=== PATIENT | female | born 1970 | race Caucasian/White ===

== ENCOUNTER 2016-09-25 18:43 | Emergency (ER) ==
[2016-09-25 18:48] VITALS: BP 105/66; TEMP 102.1; BMI 17.1
[2016-09-25] MEDS ORDERED: SODIUM CHLORIDE 1,000 ML IV STA (18:54)
[2016-09-25] MEDS ORDERED: MORPHINE 2 MG/ML SYRINGE IVP STA ×2 (18:54→20:25)
[2016-09-25] MEDS ORDERED: ZOFRAN 4 MG/2 ML IVP STA (18:54)
[2016-09-25 19:05] LABS: BILIRUBIN,URINE Negative (NEGATIVE); KETONES,URINE Negative (NEGATIVE); LEUKOCYTE ESTERASE ,URINE Negative (NEGATIVE); NITRITE,URINE Negative (NEGATIVE); PH,URINE 6.5 (5-9); PROTEIN,URINE Negative (NEGATIVE); URINE, BLOOD 1+ (NEGATIVE)
[2016-09-25 19:07] LABS: BASOPHILS # (AUTO) 0.1 K/uL (0-0.2); BASOPHILS % (AUTO) 0.4 % (0.0-3.0); EOSINOPHILS # (AUTO) 0.1 K/ul (0.0-0.7); EOSINOPHILS % (AUTO) 0.3 % (0.0-7.0); HEMATOCRIT 31.7 % (37.0-47.0); HEMOGLOBIN 10.1 g/dl (12.0-16.0); IMMATURE GRANULOCYTE % (AUTO) 0.9 % (0.0-5.0); LYMPHOCYTES # (AUTO) 2.8 K/uL (0.60-3.4); LYMPHOCYTES % (AUTO) 15.4 (10.0-50.0); MEAN CORPUSCULAR HEMOGLOBIN 24.5 pg (27.0-31.0); MEAN CORPUSCULAR HGB CONC 31.9 (31.8-35.4); MEAN CORPUSCULAR VOLUME 76.8 fl (81.0-99.0); MONOCYTES # (AUTO) 1.7 K/uL (0.4-2.0); MONOCYTES % (AUTO) 9.3 (0-10); NEUTROPHILS # (AUTO) 13.3 K/ul (2.0-6.9); NEUTROPHILS % (AUTO) 73.7; PLATELET COUNT 556 10^3/uL (140-440); RED BLOOD COUNT 4.13 10^6/ul (4.20-5.40); WHITE BLOOD COUNT 18.09 K/ul (4.6-10.2)
[2016-09-25 19:08] LABS: ADD URINE MICROSCOPIC YES; BACTERIA,URINE TRACE (NOT PRESENT)
[2016-09-25 19:16] LABS: SERUM PREGNANCY INTERNAL QC INTERNAL QC VALID
[2016-09-25 19:26] LABS: ALBUMIN/GLOBULIN RATIO 0.65; ANION GAP 12.1; BILIRUBIN,TOTAL 0.61 mg/dL (0.00-1.20); BUN/CREATININE RATIO 19.04; CALCIUM 9.1 mg/dL (8.2-10.2); CREATININE 0.84 mg/dL (0.60-1.30); POTASSIUM 4.1 mmol/L (3.5-5.10); TOTAL PROTEIN 7.6 g/dL (6.4-8.2)
[2016-09-25 19:36] LABS: ERYTHROCYTE SEDIMENTATION RATE 54 mm/hr (0-20); ESR INTERNAL QC INTERNAL QC VALID
--- NOTE | 2016-09-25 20:10 | CT ---
EXAM: CT abdomen with and without contrast. CT pelvis with and without contrast. HISTORY: Right lower quadrant pain. COMPARISON: 12/02/2014. TECHNIQUE: Multiple axial images of the abdomen and pelvis were obtained prior to and following int ravenous administration of 75 mL of Omnipaque 350, low osmolar. Images reformatted in the coronal p tonja. FINDINGS: The lung bases are clear. Degenerative changes are present in the spine. Gallbladder is absent. The liver, pancreas, spleen, adrenal glands, and kidneys are without acute a bnormality. There is extensive inflammation within the lower abdomen and pelvis which appears to be centered myron und the distal ileum which demonstrates moderate to severe wall thickening extending to the level of the ileocecal valve. Mesenteric edema is present. There is loculated fluid in the pelvis with ass ociated wall thickening, with several discrete collections which measures at least 7.4 x 4.7 cm on c oronal image 27 and more anterior pelvis, with additional collection in the region of the cul-de-sac measuring 6.6 x 2.6 cm on coronal image 45. No pneumatosis identified. No free air detected. The re is no evidence for bowel obstruction. The appendix is not seen. There are multiple mesenteric l ymph nodes, greatest in the right lower quadrant. Uterus not identified. The bladder is collapsed. IMPRESSION: Distal/terminal ileitis with extensive localized peritonitis/abscess formation, suggestive of Crohn disease.
[2016-09-25] MEDS ORDERED: ZOSYN 3.375 GM 3.375 GM in SODIUM CHLORIDE 100 ML IV STA (20:33)
--- NOTE | 2016-09-25 20:47 | ED.PDOC ---
General ED Provider: Dr. AURORA ISSA-ER Chief Complaint: Abdominal Pain Stated Complaint: christy been hurting since last night Time Seen by Physician: 18:45 Mode of Arrival: Walk-In Information Source: Patient, Family Exam Limitations: No limitations Primary Care Provider: CHRISTOPHER NOEL Nursing and Triage Documentation Reviewed and Agree: Yes GI Complaint Exam - Abdominal Pain Complaint/Exam Onset: Gradual Duration: 24hrs Symptoms Are: Still present Timing: Constant Initial Severity: Mild Current Severity: Moderate Location of Pain: Discrete, RLQ Radiates To: Reports: RLQ Character: Reports: Dull, Aching, Throbbing Aggravating: Reports: None Alleviating: Reports: None Associated Signs and Symptoms: Reports: Fever, Decreased appetite, Nausea. Denies: Diaphoresis, Cough, Chest pain, Dizziness, Back pain, Constipation, Blood in stool, Dysuria, Urinary frequency, Decreased urine output, Vaginal bleeding, Vaginal discharge, Vomiting, Diarrhea, Sore throat, Decreased activity Related History: Reports: Similar episode Cardiac Risk Factors: Reports: Smoking Ectopic Risk Factors: Reports: None Ovarian Torsion Risk Factors: Reports: None Surgical Obstruction Risk Factors: Reports: Colicky abdominal pain Related Surgical History: Reports: Tubal ligation Patient Rh Status: Unknown Abdominal Findings: Present: Rebound tenderness Differential Diagnoses: Appendicitis, Other Review of Systems - Review Of Systems Constitutional: Reports: Chills, Fever Eyes: Reports: No symptoms Ears, Nose, Mouth, Throat: Reports: No symptoms Respiratory: Reports: No symptoms Cardiac: Reports: No symptoms GI: Reports: Abdominal pain, Nausea, Poor appetite : Reports: No symptoms Musculoskeletal: Reports: No symptoms Skin: Reports: No symptoms Neurological: Reports: No symptoms Endocrine: Reports: No symptoms Hematologic/Lymphatic: Reports: No symptoms All Other Systems: Reviewed and Negative Past Medical History - Past Medical History Endocrine: Reports: Unknown Cardiovascular: Reports: Unknown Respiratory: Reports: Other Hematological: Reports: Unknown Gastrointestinal: Reports: Crohn's Genitourinary: Reports: Unknown Neuro/Psych: Reports: Unknown Musculoskeletal: Reports: Unknown Cancer: Reports: Unknown Last Menstrual Period: none - Surgical History General Surgical History: Reports: Unknown - Family History Family History: Reports: Unknown - Social History Smoking Status: Current every day smoker, Light tobacco smoker Hx Substance Use: No Alcohol Screening: None Lives: With family Physical Exam - Physical Exam Appearance: Well-appearing, No pain distress, Well-nourished Pain Distress: Moderate Eyes: YASSINE, EOMI, Conjunctiva clear ENT: Ears normal, Nose normal, Oropharynx normal Neck: Supple Respiratory: Airway patent, Breath sounds clear, Breath sounds equal, Respirations nonlabored Cardiovascular: RRR, Pulses normal, No rub, No murmur GI/: Soft, No Organomegaly, Tender, Bowel sounds hypoactive Musculoskeletal: Normal strength, ROM intact, No edema, No calf tenderness Skin: Warm Neurological: Sensation intact Psychiatric: Affect appropriate, Mood appropriate Interpretation - Radiology Interpretation Radiology Interpretation By: Radiologist Radiology Results: Positive Exam Interpreted: CT Scan ("7.4 x 4.7cm abscess") Re-Evaluation - Re-Evaluation Time of Re-Evaluation: 20:48 Status: Unchanged Vital Signs Stable: Yes Pain Level: 2 Appearance: NAD Lungs: Clear Skin: Warm and Dry Neuro: Alert and Oriented X3 CV: RRR Physician Notification - Case Discussed Physician Notified: 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 slu--8:30 Physician Notified: dr pool(surgeon) and dr sanon (e.d.) both graciously accepted this patien Time of Notification: 22:01 Critical Care Note - Critical Care Note Total Time (mins): 0 Course - Course Hematology/Chemistry: 09/25/16 19:00 09/25/16 19:00 Orders, Labs, Meds: Lab Review 09/25/16 09/25/16 18:57 19:00 WBC 18.09 H RBC 4.13 L Hgb 10.1 L Hct 31.7 L MCV 76.8 L MCH 24.5 L MCHC 31.9 RDW Coeff of Suhail 14.1 Plt Count 556 H Immature Gran % (Auto) 0.9 Neut % (Auto) 73.7 Lymph % (Auto) 15.4 [place] % (Auto) 9.3 Eos % (Auto) 0.3 Baso % (Auto) 0.4 Immature Gran # (Auto) 0.2 Neut # 13.3 H Lymph # 2.8 [place] # 1.7 Eos # 0.1 Baso # 0.1 ESR 54 H Sodium 135 L Potassium 4.1 Chloride 100 Carbon Dioxide 27 Anion Gap 12.1 BUN 16 Creatinine 0.84 Estimated GFR (MDRD) 73.00 BUN/Creatinine Ratio 19.04 Glucose 102 Calcium 9.1 Total Bilirubin 0.61 AST 18 ALT 10 L Alkaline Phosphatase 104 H Total Protein 7.6 Albumin 3.0 L Globulin 4.6 Albumin/Globulin Ratio 0.65 Amylase 41 Lipase 7 L Serum , Qual Negative Urine Color Yellow Urine Clarity Clear Urine pH 6.5 Ur Specific [place] 1.010 Urine Protein Negative Urine Glucose (UA) Negative Urine Ketones Negative Urine Blood 1+ Urine Nitrite Negative Urine Bilirubin Negative Urine Urobilinogen 0.2 Ur Leukocyte Esterase Negative Urine Microscopic RBC 5-10 Urine Microscopic WBC 0-2 Ur Squamous Epith Cells 0-2 Urine Bacteria Trace Orders Category Date Time Status NPO REMINDER: IMAGING ONCE CARE 09/25/16 18:55 Completed IV [ED IV/MEDIPORT/POWERPORT] .ONCE EMERGENCY 09/25/16 18:54 Active AMYLASE Stat LAB 09/25/16 19:00 Completed CBC W/ AUTO DIFF Stat LAB 09/25/16 19:00 Completed COMPREHENSIVE METABOLIC PANEL Stat LAB 09/25/16 19:00 Completed ESR Stat LAB 09/25/16 19:00 Completed LIPASE Stat LAB 09/25/16 19:00 Completed SERUM Stat LAB 09/25/16 19:00 Completed URINALYSIS C & S IF INDICATED Stat LAB 09/25/16 18:57 Completed 0.9 % Sodium Chloride [Saline Flush] MEDS 09/25/16 18:54 Ordered 1 syr IVF PRN PRN Hydromorphone HCl [Dilaudid 1 mg/ml Syringe] MEDS 09/25/16 21:56 Discontinued 1 mg IVP ONCE STA Morphine Sulfate [Morphine 2 mg/ml Syringe] MEDS 09/25/16 18:54 Discontinued 2 mg IVP ONCE STA Morphine Sulfate [Morphine 2 mg/ml Syringe] MEDS 09/25/16 20:25 Discontinued 2 mg IVP ONCE STA Ondansetron HCl/Pf [Zofran 4 mg/2 ml] MEDS 09/25/16 18:54 Discontinued 4 mg IVP ONCE STA Piperacillin Sodium/Tazobactam [Zosyn 3.375 gm] 3.375 MEDS 09/25/16 20:33 Discontinued gm 0.9 % Sodium Chloride [Sodium Chloride] 100 ml IV ONCE Sodium Chloride 0.9% [Sodium Chloride] 1,000 ml MEDS 09/25/16 18:54 Active IV 100 mls/hr CT ABDOMEN/PELVIS W/WO CONTRAS Stat RADS 09/25/16 18:55 Completed Medications Generic Name Dose Route Start Last Admin Trade Name Ethan PRN Reason Stop Dose Admin Sodium Chloride 1,000 mls @ 100 mls/hr 09/25/16 18:54 09/25/16 19:15 Sodium Chloride IV 09/26/16 04:53 100 mls/hr .Q10H STA Administration Sodium Chloride 1 syr 09/25/16 18:54 09/25/16 19:14 Saline Flush IVF 1 syr PRN PRN Administration To flush IV Discontinued Medications Generic Name Dose Route Start Last Admin Trade Name Ethan PRN Reason Stop Dose Admin Hydromorphone HCl 1 mg 09/25/16 21:56 Dilaudid 1 Mg/Ml Syringe IVP 09/25/16 21:57 ONCE STA Piperacillin Sod/Tazobactam 100 mls @ 100 mls/hr 09/25/16 20:33 09/25/16 20: 49 Sod 3.375 gm/ Sodium Chloride IV 09/25/16 21:32 100 mls/hr ONCE STA Administration Morphine Sulfate 2 mg 09/25/16 18:54 09/25/16 19:15 Morphine 2 Mg/Ml Syringe IVP 09/25/16 18:55 2 mg ONCE STA Administration Morphine Sulfate 2 mg 09/25/16 20:25 09/25/16 20:49 Morphine 2 Mg/Ml Syringe IVP 09/25/16 20:26 2 mg ONCE STA Administration Ondansetron HCl 4 mg 09/25/16 18:54 09/25/16 19:15 Zofran 4 Mg/2 Ml IVP 09/25/16 18:55 4 mg ONCE STA Administration Vital Signs: Temp Pulse Resp BP Pulse Ox 09/25/16 18:44 102.1 F H 118 H 18 105/66 96 Departure - Departure Time of Disposition: 22:01 Disposition: TSF SHORT-TRM HOSP Discharge Problem: Terminal ileitis with abscess Instructions: Abscess (ED) Condition: Good Pt referred to PMD for follow-up: Yes Allergies/Adverse Reactions: Allergies No Known Allergies Allergy (Verified 09/25/16 18:48) Home Medications: Ambulatory Orders 1 [No Reported Medications] 09/25/16 Transfer Form Completed: Yes Disposition Discussed With: Patient, Family
[2016-09-25] MEDS ORDERED: DILAUDID 1 MG/ML SYRINGE IVP STA (21:56)
== END 2016-09-25 22:20 | disposition short-term general hospital (02) ==
LOC: ED 18:43
DX: K50.014 Crohn's disease of small intestine with abscess (principal); F17.210 Nicotine dependence, cigarettes, uncomplicated
CPT/HCPCS: 36415; 80053; 81001; 82150; 83690; 84703; 85025; 85651; 96361; 96365; 96375; 96376; 99285

== ENCOUNTER 2017-03-06 16:19 | Outpatient (CLI) ==
[2017-03-06 16:33] LABS: BASOPHILS % (AUTO) 0.3 % (0.0-3.0); EOSINOPHILS # (AUTO) 0.1 K/ul (0.0-0.7); EOSINOPHILS % (AUTO) 0.9 % (0.0-7.0); HEMATOCRIT 32.1 % (37.0-47.0); HEMOGLOBIN 10.3 g/dl (12.0-16.0); IMMATURE GRANULOCYTE % (AUTO) 0.7 % (0.0-5.0); LYMPHOCYTES # (AUTO) 5.1 K/uL (0.60-3.4); MEAN CORPUSCULAR HEMOGLOBIN 26.6 pg (27.0-31.0); MEAN CORPUSCULAR HGB CONC 32.1 (31.8-35.4); MEAN CORPUSCULAR VOLUME 82.9 fl (81.0-99.0); MONOCYTES # (AUTO) 0.7 K/uL (0.4-2.0); MONOCYTES % (AUTO) 8.9 (0-10); NEUTROPHILS # (AUTO) 1.7 K/ul (2.0-6.9); NEUTROPHILS % (AUTO) 22.2; PLATELET COUNT 512 10^3/uL (140-440); RED BLOOD COUNT 3.87 10^6/ul (4.20-5.40); WHITE BLOOD COUNT 7.57 K/ul (4.6-10.2)
[2017-03-06 16:49] LABS: ALBUMIN 2.7 g/dL (3.4-5.0); BILIRUBIN,DIRECT 0.14 mg/dL (0.00-0.30); BILIRUBIN,TOTAL 0.21 mg/dL (0.00-1.20); TOTAL PROTEIN 5.9 g/dL (6.4-8.2)
== END 2017-03-06 16:20 | disposition home or self-care (01) ==
LOC: LAB 16:19
PROVIDERS: ATTEND Internal Medicine Gastroenterology
DX: K50.913 Crohn's disease, unspecified, with fistula (principal); Z79.899 Other long term (current) drug therapy
CPT/HCPCS: 36415; 80076; 85025

== ENCOUNTER 2017-03-12 16:50 | Inpatient (IN) ==
[2017-03-12 17:36] VITALS: BMI 14.9
[2017-03-12 18:09] LABS: BASOPHILS # (AUTO) 0.1 K/uL (0-0.2); BASOPHILS % (AUTO) 0.7 % (0.0-3.0); EOSINOPHILS % (AUTO) 0.3 % (0.0-7.0); HEMATOCRIT 33.9 % (37.0-47.0); IMMATURE GRANULOCYTE % (AUTO) 0.8 % (0.0-5.0); LYMPHOCYTES # (AUTO) 3.4 K/uL (0.60-3.4); LYMPHOCYTES % (AUTO) 38.7 (10.0-50.0); MEAN CORPUSCULAR HGB CONC 32.4 (31.8-35.4); MEAN CORPUSCULAR VOLUME 83.3 fl (81.0-99.0); MONOCYTES # (AUTO) 1.1 K/uL (0.4-2.0); MONOCYTES % (AUTO) 11.9 (0-10); NEUTROPHILS # (AUTO) 4.2 K/ul (2.0-6.9); NEUTROPHILS % (AUTO) 47.6; PLATELET COUNT 511 10^3/uL (140-440); RED BLOOD COUNT 4.07 10^6/ul (4.20-5.40); WHITE BLOOD COUNT 8.82 K/ul (4.6-10.2)
[2017-03-12 18:54] LABS: ALBUMIN 2.6 g/dL (3.4-5.0); ALBUMIN/GLOBULIN RATIO 0.7; ANION GAP 13.3; BILIRUBIN,TOTAL 0.22 mg/dL (0.00-1.20); BUN/CREATININE RATIO 22.5; CALCIUM 8.6 mg/dL (8.2-10.2); CREATININE 0.8 mg/dL (0.60-1.30); POTASSIUM 3.3 mmol/L (3.5-5.10); TOTAL PROTEIN 6.3 g/dL (6.4-8.2)
[2017-03-12] MEDS ORDERED: INFUVITE ADULT IV ONE (18:59)
--- NOTE | 2017-03-12 19:23 | DI ---
EXAM: PA and lateral views of the chest. HISTORY: Weight loss. FINDINGS: The bones are unremarkable. The cardiac silhouette and pulmonary vasculature are within n ormal limits. The costophrenic angles are clear. No infiltrate or consolidation. Impression: No acute cardiopulmonary disease.
--- NOTE | 2017-03-12 19:24 | DI ---
EXAM: Upright supine views of the abdomen. HISTORY: Weight loss. Abdominal pain. FINDINGS: There is a normal bowel gas pattern. No evidence of bowel obstruction or free intraperito bar air. There are surgical clips in the right upper quadrant consistent with cholecystectomy. Th ere are phleboliths in the pelvis. The bones are unremarkable. Impression: Normal bowel gas pattern. Cholecystectomy.
[2017-03-12 20:09] LABS: BILIRUBIN,URINE 1+ (NEGATIVE); KETONES,URINE Trace (NEGATIVE); LEUKOCYTE ESTERASE ,URINE Trace (NEGATIVE); NITRITE,URINE Negative (NEGATIVE); PH,URINE 5.5 (5-9); PROTEIN,URINE Trace (NEGATIVE); URINE, BLOOD 1+ (NEGATIVE)
[2017-03-12] MEDS: INFUVITE ADULT 10 ML in D5%-NS-KCL 20 MEQ/L IV SOL 1,000 ML IV SCH (20:13)
[2017-03-12 20:15] LABS: ADD URINE MICROSCOPIC YES
[2017-03-12 20:38] LABS: COCAIN SCREEN,URINE NEGATIVE (NEGATIVE)
[2017-03-12] MEDS: DILAUDID 1 MG/ML SYRINGE IVP PRN (22:23)
[2017-03-12] MEDS ORDERED: BENTYL PO PRN (22:44)
[2017-03-12] MEDS ORDERED: ADALIMUMAB 40 MG SQ SCH (22:45)
[2017-03-12] MEDS ORDERED: DRISDOL PO SCH (23:00)
[2017-03-13] MEDS: DILAUDID 1 MG/ML SYRINGE IVP PRN ×3 (04:27→22:53)
[2017-03-13] MEDS ORDERED: INFUVITE ADULT IV ONE ×3 (06:19→23:57)
[2017-03-13] MEDS: INFUVITE ADULT 10 ML in D5%-NS-KCL 20 MEQ/L IV SOL 1,000 ML IV SCH (06:24)
[2017-03-13] MEDS ORDERED: NON-FORMULARY MEDICATION (Ondansetron Hcl [Zofran] 8 MG) PO SCH (09:00)
[2017-03-13] MEDS ORDERED: NON-FORMULARY MEDICATION (Ferrous Sulfate [Ferrous Sulfate] 325 MG) PO SCH ×22 (09:00)
[2017-03-13] MEDS ORDERED: RHEUMATREX PO SCH (09:00)
[2017-03-13] MEDS ORDERED: NON-FORMULARY MEDICATION (Metronidazole [Flagyl] 500 MG) PO SCH (09:00)
[2017-03-13] MEDS ORDERED: DRISDOL PO SCH (09:00)
[2017-03-13] MEDS: FLAGYL PO SCH ×3 (09:40→20:13)
[2017-03-13] MEDS: FERROUS SULFATE PO SCH ×3 (09:41→20:13)
[2017-03-13] MEDS: FOLIC ACID PO SCH (09:41)
[2017-03-13] MEDS: ZOFRAN TAB PO SCH ×3 (09:41→20:13)
--- NOTE | 2017-03-13 09:55 | CT ---
EXAM: CT Abdomen with contrast. CT Pelvis with contrast. HISTORY: Crohn disease. Abdominal pain. COMPARISON: 09/25/2016. TECHNIQUE: Multiple axial images of the abdomen and pelvis were obtained following intravenous admi nistration of 75 mL of Omnipaque 350, low osmolar. Images were reformatted in the coronal plane. FINDINGS: The lung base are clear. Degenerative changes present in the spine, greatest at L5-S1. Gallbladder is absent. The liver, pancreas, spleen, adrenal glands, kidneys are unremarkable. There is severe wall thickening of several distal loops of ileum, including the terminal ileum. The re is also wall thickening of some adjacent sigmoid colon with some tethering of the mesentery betwe en these bowel loops, and the possibility of communication between the distal small bowel and adjace nt sigmoid colon. No pneumatosis seen. There is no evidence for contrast extravasation or free air . No circumscribed drainable fluid collection identified. There are multiple mesenteric lymph node s present. There is no evidence for bowel obstruction. Urinary bladder is unremarkable. Uterus is absent.. IMPRESSION: Severe distal/terminal ileitis with findings suggesting the possibility enterocolonic fistula. No b owel obstruction, free air or abscess identified.
[2017-03-13] MEDS: ENTOCORT EC PO SCH (16:45)
[2017-03-14] MEDS: DILAUDID 1 MG/ML SYRINGE IVP PRN ×3 (04:51→15:10)
[2017-03-14] MEDS: FLAGYL PO SCH ×2 (04:51→13:26)
[2017-03-14] MEDS: INFUVITE ADULT 10 ML in D5%-NS-KCL 20 MEQ/L IV SOL 1,000 ML IV SCH ×2 (06:12→09:56)
[2017-03-14] MEDS: FOLIC ACID PO SCH (08:37)
[2017-03-14] MEDS: FERROUS SULFATE PO SCH ×2 (08:38→15:16)
[2017-03-14] MEDS: ZOFRAN TAB PO SCH ×2 (08:38→15:16)
[2017-03-14] MEDS: ENTOCORT EC PO SCH (08:38)
[2017-03-14] MEDS ORDERED: ADALIMUMAB 40 MG SUBCUT SCH (09:00)
[2017-03-14 17:44] VITALS: BP 112/78; TEMP 98.2
[2017-03-14] MEDS ORDERED: TYLENOL #3 TAB PO STA (18:19)
[2017-03-14] MEDS ORDERED: TYLENOL #3 TAB ONE (18:20)
--- NOTE | 2017-03-15 11:15 | HP ---
CHIEF COMPLAINT: 1. Abdominal pain. 2. Weight loss. 3. Anorexia. HISTORY OF PRESENT ILLNESS: This 47-year-old female was seen at the office as a new patient. The patient had been known to have had Crohn's disease with complications. The patient claimed to not have eaten much in the last day or two. She has constant abdominal pain. In the course of the examination, she was noted to have marked tenderness in the right abdomen. There is some rounded areas in the anterior abdominal wall that she claimed to be abscesses. It had been there for some time. Because of the persistent abdominal pain with marked tenderness and history of Crohn's disease with complications admission was felt necessary, more so that she had not been eating and she is losing weight. PAST PERSONAL HISTORY: 1. Crohn's disease with fistula formation 2. Perforated appendix 3. Cholecystectomy 4. Total abdominal hysterectomy and BSO 5. Colonoscopy and endoscopy 2014, seems to have had some fecal drainage through her vagina but not documented upon examination under general anesthesia. The patient claimed to have had Pentaza as well as prednisone in the past. She was seen at [facility] in September 2016 and was subsequently referred to [place], transported to [facility]. FAMILY HISTORY: Her father and maternal aunt was diagnosed with Crohn's disease. No colorectal carcinoma in the family. Mother was listed as having diabetes mellitus and brother. High blood pressure in mother and brother also. Mother had uterine carcinoma and her father also had throat carcinoma. Mother had chemical imbalance as well as heart disease and brother had skin cancer. SOCIAL HISTORY: The patient is , smokes very small amount of cigarettes. She use to smoke one pack of cigarettes a day. Admits to using marijuana. She has two children, 24 and 18 years of age. MEDICATIONS: (HOME) 1. Humira 40 mg/0.8 cc subcutaneously every other week 2. Zofran 8 mg three times a day 3. Bentyl Hydrochloride 10 mg capsule q.6hr p.r.n. 4. Ferrous Sulfate 325 mg three times a day. 5. Vitamin D two 50,000 units monthly 6. Flagyl 500 mg tablet three times a day 7. Methotrexate 2.5 mg tablet weekly 8. Folic Acid 1 mg tablet daily 9. Budesonide 3 mg capsule Er daily ALLERGIES: NKDA REVIEW OF SYSTEMS: CONSTITUTIONAL: The patient had no fever or chills but fatigue, looks florence. NEWSPAPER MANAGER: The patient denies any headaches, ataxia or syncopal episode or seizure disorder or seizures. VISUAL: Denies any blurred vision, double vision or transient loss of vision. AUDITORY: Hearing is adequate, no tinnitus, no pain or drainage. RESPIRATORY: No significant cough. GASTROINTESTINAL: The patient has abdominal pain, nausea plus anorexia and some indigestion. GENITOURINARY: The patient denies any pain or frequency of urination or urgency. MUSCULOSKELETAL: The patient is weak, probably secondary to lack of nutrition. She had lost significant amount of weight. ENDOCRINE: Negative. PSYCHIATRIC: Anxiety, depression. HEMATOLOGY: No history of prolonged bleeding. PHYSICAL EXAMINATION: GENERAL: 47-year-old female admitted to the hospital because of abdominal pain and tenderness, loss of appetite, lack of oral intake.The patient had been known to have Crohn's disease with complications. She appears very thin and tired. She is also somewhat pale. VITAL SIGNS: Height 5'5", 89 lbs, 14.4 ozs. Temperature 97.8, pulse 102, BP 110 /62 left, right 120/78, respiratory rate 18, oxygen saturation 99 on room air. HEAD: Unremarkable. Face is symmetrical and equal, somewhat sunken, no facial weakness. No remarkable tenderness to palpation in the frontomaxillary sinus areas. EYES: Pupils equal/reactive to light about 3 mm in size. Conjunctivae not pale. Sclerae not icteric. MOUTH: Unremarkable. NECK: No masses. No bruit. No tenderness. No rigidity. CHEST: Essentially symmetrical and equal. BREASTS: No dominant tumor masses. Axilla negative for any adenopathies. LUNGS: Breath sounds are heard on both sides. No rales or wheezing. HEART: Audible and regular with good tones. No murmurs. ABDOMEN: Flat, softer in the upper abdomen, markedly tender in the lower abdomen but with active bowel sounds. No significant muscular guarding. There are some subcutaneous rounded masses. She did tell me that these were abscesses but it doesn't feel like an abscess and there is no skin reaction above the mass. Bowel sounds were active. EXTERNAL GENITALIA: Not examined today. LOWER EXTREMITIES: Symmetrical and equal with no significant edema. Muscle mass is declined significantly. Pedal pulses were absent. UPPER EXTREMITIES: Symmetrical and equal. ASSESSMENT: 1. CROHN'S DISEASE WITH COMPLICATIONS 2. PERSISTENT WEIGHT LOSS SECONDARY TO #1 3. ANOREXIA SECONDARY TO #1 4. HISTORY OF VAGINAL COLLOID DRAINAGE NOT CONFIRMED 5. HISTORY OF DEPRESSION 6. HISTORY OF DEPRESSION 7. HISTORY OF ANXIETY 8. HISTORY OF TOTAL ABDOMINAL HYSTERECTOMY AND BSO 9. HISTORY OF CHOLECYSTECTOMY 10. HISTORY OF LAPAROSCOPIC OPERATION WITH UTERINE ABLATION 11. HISTORY OF CHRONIC TOBACCO USE AND ABUSE, DECREASED 12. HISTORY OF MARIJUANA USE 13. HISTORY OF COLONOSCOPY AND ENDOSCOPY 01/05/15 14. 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
[2017-03-17 15:05] LABS: HIV ANTIBODIES QUALITATIVE NONREACTIVE (Nonreactive)
[2017-03-18 09:39] LABS: BENZODIAZEPINES Negative ng/mL (Cutoff=300); COCAINE (METAB) Negative ng/mL (Cutoff=300); PHENCYCLIDINE Negative ng/mL (Cutoff=25)
[2017-03-18 11:33] LABS: OPIATES Negative ng/mL (Cutoff=300)
--- NOTE | 2017-03-18 14:54 | PN ---
DATE OF VISIT: 03/14/17 47 year old female who was admitted because of lower abdominal pain and tenderness. She was initially at the office prior to admission. The CT scan of the abdomen and pelvis done yesterday with oral and IV contrast revealed some enterocolonic fistula. The patient also mentioned that she had some brownish discharge from the vagina, which maybe stool. 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 I did a speculum examination today and the vaginal opening admits a middle sized speculum without any difficulty. The patient has an area of redness and swelling of the mucosa at about 11 o'clock. Vaginal discharge does not indicate any fecal material, grossly. There is some redness in the vaginal mucosa, but not anywhere near the one at 11 o'clock position. Bimanual palpation revealed the area to be with an indentation surrounding edematous tissue. There is tenderness in both adnexa to palpation, including the bladder. This patient is known to have Crohn's disease with previous abscess formation treated with percutaneous drainage under guidance. She had seen Charley Palumbo, as well as Dr. Jovani Velazquez. I had also discussed with the patient with regards to the drug screen. The notes from [place] mentioned that she had been using marijuana. However, our drug screen did indicate a positive finding for amphetamine and methamphetamine. I asked her about the use of that and she told me that she did indeed. She had been from her boyfriend, who had been with her for the last nine years. She has to have some strength to continue to work. 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 I did advise that I would not prescribe her any narcotic pain medication if she continues to use the methamphetamine. She told me that she would not. I also told her that she has an appointment upcoming with Dr. Palumbo, two weeks from now and she doesn't remember that she does. I told her that Dr. Cooper would advance the appointment next week and she might get a phone call from her office as to the time and the day that she is supposed to go there. I also informed her that I had informed Dr. Palumbo that she had lost more weight and her appetite has decreased and difficulty eating. I did give her a Tylenol #3 before leaving the hospital and she did not have any reaction to the medication. She is prescribed Tylenol #3, #30 to be taken one every 6-[address] if drowsy. No refills. I will see her again at the office in a week from tomorrow and before if there is any problem. I also informed her that if Saturday is the day that she is supposed to go to [place] that she should cancel the appointment with me and reschedule it for the next week. The patient had shown good understanding. She is due to have a Humira today and she has the dose at home. I told her that she should do that. She should call the office tomorrow and let us know what medications that she doesn't have. I would refill it and she uses [facility]. MTDD
--- NOTE | 2017-03-18 15:11 | PN ---
DATE OF VISIT: 03/13/17 The patient, today, is alert and oriented times four, not dyspneic, nor tachypneic. She claims that she is feeling better and the pain is relieved by the medication. Her urine drug screen was positive for meth and methamphetamine , as well as marijuana. CT scan of the abdomen and pelvis with oral and IV contrast showed severe wall thickening of several distal loops of ileum, including the terminal ileum. There is also some wall thickening of the adjacent sigmoid colon with some tethering of the mesentery between these bowel loops. There is a possibility of communication between the distal small bowel and adjacent sigmoid colon. No pneumatosis seen. There is no evidence for contrast extravasation or free air. There is no circumscribed drainable fluid collection identified. There are multiple mesenteric lymph nodes present. There is no evidence of bowel obstruction. Urinary bladder is unremarkable. Uterus is absent. Final impression is severe distal/terminal ileitis with findings suggesting the possibility of enterocolonic fistula. No bowel obstruction, free air or abscess identified. The patient is taking Humira ever two weeks, as well as Methotrexate at a low dose. These were prescribed by Dr. Charley Palumbo at [facility] in [place]. CBC on admission showed normal WBC 8,820. Blood sugar 184. Procalcitonin less than 0.05. TSH 0.701 within normal. Her fluid intake is between 25 to 50%. VITAL SIGNS: Seem to be stable at 5:46 p.m. on 03/13/2017 with a temperature of 98.1, pulse 94, blood pressure 126/82, respiratory rate 16, oxygen saturation 99 at room air. I had asked the patient whether she had used marijuana or meth and she declined or said no. I informed her that those were positive on the drug screen and quantitative measurements were requested. I informed the patient that we will try to talk to the doctor in [place] and get more guidance on what they would like to do. She does have a follow up appointment according to her with one of the doctors. I told her that she most likely will be discharged tomorrow since we have finished what we planned to do. She also doesn't have any active problems since her temperature is normal and white count is normal and the Procalcitonin is normal. MTDD
--- NOTE | 2017-03-18 15:36 | DS ---
DATE OF ADMISSION: 03/12/17 DATE OF DISCHARGE: 03/14/17 PATIENT IDENTIFICATION: The patient is a 47 year old female who was seen for the first time at the office as a new patient was a transfer from another family physician. This patient had history of severe Crohn's disease and was transferred from this facility from the emergency room to [facility] last September 2016. The patient had multiple abscess and were aspirated under guidance. She was seen initially by a surgeon Dr. Sergey Johnson and was referred to internal medicine GI and was seen by Dr. Charley Palumbo. The patient during the course of examined with markedly tender in the lower abdomen and bowel sounds are active. She did complain of some brownish drainage from her vagina and partially maybe fecaloid. The patient however had an extensive examination for this problem under anesthesia and there was not obvious fistula. The general appearance of the patient markedly emaciated and pale. LUNGS: Breath sounds are heard in both side with no rales or wheezing. HEART: Audible and regular with good tones and no murmurs CHEST: Markedly prominent ribs from the weight loss ABDOMEN: Flat, markedly tender in the lower abdomen to palpation. The upper abdomen is less tender and bowel sounds were active. The area in the lower abdomen which is rounded and soft. Don't know the nature of this. EXTERNAL GENITALIA: Was examined and no remarkable external abnormalities.Speculum examination reveal a red area with prominent vaginal tissue in the right upper portion about 11 o'clock of the vaginal cavity. The rest of the vagina has some redness in the mucosa with cloudy drainage. Palpation of the area at 11 o'clock felt like there is a dimple and maybe side of fistula and maybe the opening is quite small and maybe connected to the colon rather then small intestine. There is no obvious fecal material in the vagina. This patient was continued on all her home medications. She was given Dilaudid 1mg intervenously Q 4 hour PRN. This did help the abdominal pain. The patient's oral intake however was minimal between 25-50%. Her fluid intake on the 1st was 300cc and 2,180 on the 2nd and just before discharge on 03/14/17 was 1,230. The oral supplement was 240cc. I had informed the patient that I had the opportunity to discuss the case with Dr. Charley Palumbo. Dr. Palumbo told me that she has an appointment about mid March. I did tell her about her general conditions and the fact that also lost weight. The inflammation seemed to be less than what it was back when she saw her at [facility]. She told me that she would advance her appointment for this coming week and she would notify the patient. The patient is due for her Humira yesterday and I told her to take the dose and she already had the medication as well as the Methotrexate. If there is any medication that she needed that she doesn't have then she should get in touch with the office tomorrow so we could fill the prescription. I also advised her to see me a week from Saturday03/15/17. She can cancel that if she is to see Dr. Palumbo in [place]. If Dr. Palumbo office would not call her then she should let us know so I could call her back. This patient was initially given Tylenol #3 for pain and was initiated to the hospital to see if she has any reaction to the medication and she did not have any. She was then prescribed Tylenol #3 #30 to be taken one 6-[address] when drowsy with no refills. The patient is to drink supplement such as Boost or Glucerna at least twice a day. FINAL DIAGNOSES: 1. Crohn's disease, severe 2. 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 Chronic tobacco use and abuse, persistent 5. Continue emaciation and probably failure to thrive if it continues PROGNOSIS: Guarded to Poor MTDD
== END 2017-03-14 19:00 | disposition home or self-care (01) | DRG 385 ==
LOC: MEDSURG B 16:50
PROVIDERS: ADMIT General Practice; ATTEND General Practice
DX: K50.90 Crohn's disease, unspecified, without complications (principal); E41 Nutritional marasmus; K63.2 Fistula of intestine; N82.3 Fistula of vagina to large intestine; F17.210 Nicotine dependence, cigarettes, uncomplicated; F15.90 Other stimulant use, unspecified, uncomplicated; F12.90 Cannabis use, unspecified, uncomplicated; Z79.899 Other long term (current) drug therapy
CPT/HCPCS: 36415; 80053; 80074; 80306; 81001; 82542; 84145; 84443; 85025; 86701; 97802

== ENCOUNTER 2017-08-10 18:01 | Outpatient (CLI) ==
[2017-05-17 18:47] VITALS: BMI 14.9
== END 2017-08-10 18:02 | disposition short-term general hospital (02) ==
LOC: AMBL 18:01
PROVIDERS: ATTEND Internal Medicine
DX: R53.1 Weakness (principal); K50.90 Crohn's disease, unspecified, without complications; R63.4 Abnormal weight loss; R11.2 Nausea with vomiting, unspecified; R42 Dizziness and giddiness; R00.0 Tachycardia, unspecified; Z93.3 Colostomy status; Z98.890 Other specified postprocedural states

== ENCOUNTER 2017-08-26 22:15 | Inpatient (IN) ==
[2017-08-26] MEDS ORDERED: VANCOMYCIN 1,000 MG in SODIUM CHLORIDE 200 ML IV STA (22:48)
[2017-08-26] MEDS ORDERED: SOLU-MEDROL 125 MG IVP STA (22:52)
[2017-08-26] MEDS ORDERED: ZOFRAN 4 MG/2 ML IVP STA (23:03)
[2017-08-26] MEDS ORDERED: VANCOMYCIN ONE (23:08)
[2017-08-27] MEDS ORDERED: SODIUM CHLORIDE 100 ML IV ONE
--- NOTE | 2017-08-27 00:02 | ED.PDOC ---
General ED Provider: Dr. RENEE FIERRO Chief Complaint: Cellulitis Stated Complaint: Right ear lobe is red swollen, tender, was seen at [facility], was started her on the antibiotics, today she got worse, not able to tolerate oral antibiotics and the redness and swelling is worse amd spreadinf down the neck. Time Seen by Physician: 23:59 Mode of Arrival: Wheelchair Information Source: Patient [facility] and Triage Documentation Reviewed and Agree: Yes Reviewed sepsis parameters & appropriate labs ordered?: Yes System Inflammatory Response Syndrome: Not Applicable Sepsis Protocol: For patient's 13 years and over: Temp is 96.8 and below OR 101 and greater Pulse >90 BPM Resp >20/minute Acutely Altered Mental Status Are patient's symptoms suggestive of a new infection, such as: -Pneumonia -Skin, Soft Tissue -Endocarditis -UTI -Bone, Joint Infection -Implantable Device -Acute Abdominal Infection -Wound Infection -Meningitis -Blood Stream Catheter Infection -Unknown Skin Complaint Exam - Skin/Soft Tissue Complaint/Exam Symptoms Are: Still present Timing: Constant Initial Severity: Severe Current Severity: Severe Character: Reports: Redness, Swelling, Raised, Painful Aggravating: Reports: Touch Alleviating: Reports: None Associated Signs and Symptoms: Reports: Fever, Tenderness, Red streaks. Denies : Chills, Itching, Drainage, Bruising, Joint swelling Related Surgical History: Reports: None Recent Exposure to Others w/Similar Symptoms: No Skin Findings: Present: Erythema, Induration. Absent: Fluctuant mass Differential Diagnoses: Cellulitis Review of Systems - Review Of Systems Constitutional: Reports: No symptoms Eyes: Reports: No symptoms Ears, Nose, Mouth, Throat: Reports: No symptoms Respiratory: Reports: No symptoms Cardiac: Reports: No symptoms GI: Reports: Nausea, Vomiting : Reports: No symptoms Musculoskeletal: Reports: No symptoms Skin: Reports: No symptoms Neurological: Reports: No symptoms Endocrine: Reports: No symptoms Hematologic/Lymphatic: Reports: No symptoms All Other Systems: Reviewed and Negative Past Medical History - Past Medical History Previously Healthy: Yes Endocrine: Reports: Unknown Cardiovascular: Reports: Unknown Respiratory: Reports: Other Hematological: Reports: Unknown Gastrointestinal: Reports: Crohn's Genitourinary: Reports: Unknown Neuro/Psych: Reports: Unknown Musculoskeletal: Reports: Unknown Cancer: Reports: Unknown Last Menstrual Period: hysterectomy 2014 - Surgical History General Surgical History: Reports: Other (partial colectomy) - Family History Family History: Reports: Unknown - Social History Smoking Status: Former smoker Hx Substance Use: Yes (marijuana) Alcohol Screening: None - Immunizations Tetanus Shot up to Date: Yes Physical Exam - Physical Exam Appearance: Ill-appearing, Thin Eyes: YASSINE, EOMI, Conjunctiva clear ENT: Erythema Respiratory: Airway patent, Breath sounds clear, Breath sounds equal, Respirations nonlabored Cardiovascular: RRR, Pulses normal, No rub, No murmur GI/: Soft (colostomy bag intact), Nontender, No masses, Bowel sounds normal, No Organomegaly Musculoskeletal: Normal strength, ROM intact, No edema, No calf tenderness Skin: Warm, Dry, Normal color Neurological: Sensation intact, Motor intact, Reflexes intact, Cranial nerves intact, Alert, Oriented Psychiatric: Affect appropriate, Mood appropriate Physician Notification - Case Discussed Time of Notification: 00:09 (Dr Davidson) Critical Care Note - Critical Care Note Total Time (mins): 25 Course - Course Hematology/Chemistry: 08/26/17 23:00 08/26/17 23:00 Orders, Labs, Meds: Lab Review 08/26/17 08/26/17 08/26/17 23:00 23:00 23:00 WBC 9.02 RBC 3.83 L Hgb 10.6 L Hct 32.5 L MCV 84.9 MCH 27.7 MCHC 32.6 RDW Coeff of Suhail 16.9 H Plt Count 301 Immature Gran % (Auto) 1.0 Neut % (Auto) 74.2 Lymph % (Auto) 14.3 [place] % (Auto) 8.6 Eos % (Auto) 1.6 Baso % (Auto) 0.3 Immature Gran # (Auto) 0.1 Neut # 6.7 Lymph # 1.3 [place] # 0.8 Eos # 0.1 Baso # 0.0 Sodium 138 Potassium 3.5 Chloride 106 Carbon Dioxide 25 Anion Gap 10.5 BUN 18 Creatinine 0.84 Estimated GFR (MDRD) 73.00 BUN/Creatinine Ratio 21.42 Glucose 123 H Lactic Acid 7.4 Calcium 9.0 Total Bilirubin 0.3 AST 103 H ALT 102 H Alkaline Phosphatase 117 H Total Protein 7.2 Albumin 3.0 L Globulin 4.2 Albumin/Globulin Ratio 0.71 Procalcitonin 08/26/17 23:00 WBC RBC Hgb Hct MCV MCH MCHC RDW Coeff of Suhail Plt Count Immature Gran % (Auto) Neut % (Auto) Lymph % (Auto) [place] % (Auto) Eos % (Auto) Baso % (Auto) Immature Gran # (Auto) Neut # Lymph # [place] # Eos # Baso # Sodium Potassium Chloride Carbon Dioxide Anion Gap BUN Creatinine Estimated GFR (MDRD) BUN/Creatinine Ratio Glucose Lactic Acid Calcium Total Bilirubin AST ALT Alkaline Phosphatase Total Protein Albumin Globulin Albumin/Globulin Ratio Procalcitonin 0.14 Orders Category Date Time Status ED IV/MEDIPORT/POWERPORT .ONCE EMERGENCY 08/26/17 22:48 Active CBC W/ AUTO DIFF Stat LAB 08/26/17 23:00 Completed COMPREHENSIVE METABOLIC PANEL Stat LAB 08/26/17 23:00 Completed LACTIC ACID Stat LAB 08/26/17 23:00 Completed PROCALCITONIN Stat LAB 08/26/17 23:00 Completed 0.9 % Sodium Chloride [Saline Flush] MEDS 08/26/17 22:48 Ordered 1 syr IVF PRN PRN Methylprednisolone Sod Succ/Pf [Solu-Medrol 125 mg] MEDS 08/26/17 22:52 Discontinued 125 mg IVP ONCE STA Ondansetron HCl/Pf [Zofran 4 mg/2 ml] MEDS 08/26/17 23:03 Discontinued 4 mg IVP ONCE STA Vancomycin HCl [Vancomycin] MEDS 08/26/17 23:08 Discontinued 1,000 mg .ROUTE .STK-MED ONE Vancomycin HCl [Vancomycin] 1,000 mg MEDS 08/26/17 22:48 Active 0.9 % Sodium Chloride [Sodium Chloride] 200 ml IV ONCE Medications Generic Name Dose Route Start Last Admin Trade Name Freq PRN Reason Stop Dose Admin Vancomycin HCl 1,000 mg/ 200 mls @ 100 mls/hr 08/26/17 22:48 08/26/17 23:19 Sodium Chloride IV 08/27/17 00:47 Not Given ONCE STA Sodium Chloride 1 syr 08/26/17 22:48 08/26/17 23:17 Saline Flush IVF 1 syr PRN PRN Administration To flush IV Discontinued Medications Generic Name Dose Route Start Last Admin Trade Name Freq PRN Reason Stop Dose Admin Methylprednisolone Sodium Succinate 125 mg 08/26/17 22:52 08/26/17 23:17 Solu-Medrol 125 Mg IVP 08/26/17 22:53 125 mg ONCE STA Administration Ondansetron HCl 4 mg 08/26/17 23:03 08/26/17 23:17 Zofran 4 Mg/2 Ml IVP 08/26/17 23:04 4 mg ONCE STA Administration Vital Signs: Temp Pulse Resp BP Pulse Ox 08/26/17 22:15 97.1 F L 82 20 83/57 L 96 Departure - Departure Time of Disposition: 00:04 Disposition: ADMITTED INPATIENT Discharge Problem: Cellulitis of earlobe Qualifiers: Laterality: right Qualified Code(s): H60.11 - Cellulitis of right external ear Instructions: Cellulitis (ED) Condition: Stable Pt referred to PMD for follow-up: No IPMP verified?: No Allergies/Adverse Reactions: Allergies No Known Allergies Allergy (Verified 08/26/17 22:28) Home Medications: Ambulatory Orders Adalimumab [Humira Pen Crohn-Uc-Hs Starter] 40 mg SQ EVERY OTHER WEEK inj 03/12 Dicyclomine HCl 10 mg PO Q6HR PRN tab-cap 03/12/17 Ergocalciferol (Vitamin D2) [Vitamin D2] 50,000 unit PO MONTHLY tab-cap Ferrous Sulfate 325 mg PO TID tab-cap 03/12/17 Folic Acid 1 mg PO DAILY tab-cap 03/12/17 Methotrexate Sodium [Methotrexate] 2.5 mg PO WEEKLY #24 tab-cap 03/12/17 Metronidazole [Flagyl] 500 mg PO TID tab-cap 03/12/17 Ondansetron HCl [Zofran] 8 mg PO TID #190 tab-cap 03/12/17 Ciprofloxacin/Dexamethasone [Ciprodex Otic Suspension] 4 drop OT DIRECTED Clindamycin HCl 300 mg PO TID 08/26/17 Hydrocodone/Acetaminophen [Hydrocodone-Acetamin 5-325 mg] 5 - 325 mg PO Q6H PRN 08/26/17 Disposition Discussed With: Patient
[2017-08-27] MEDS ORDERED: TYLENOL PO PRN (00:10)
[2017-08-27] MEDS ORDERED: ROCEPHIN 1 GM in SODIUM CHLORIDE 50 ML IV SCH (00:30)
--- NOTE | 2017-08-27 00:45 | DI ---
EXAM: Two-view abdomen HISTORY: Vomiting COMPARISON: None. FINDINGS: Hemostatic clips are seen in the right upper quadrant. There is a right-sided ostomy. The re are fine javeir seen in the upper midline pelvis. There is a paucity of bowel gas. IMPRESSION: Postoperative changes as described. Right-sided ostomy site without obstruction or free air
[2017-08-27 01:07] VITALS: BMI 16.0
[2017-08-27] MEDS ORDERED: ROCEPHIN ONE (01:32)
[2017-08-27] MEDS: SODIUM CHLORIDE 1,000 ML IV SCH ×2 (01:34→16:05)
[2017-08-27] MEDS ORDERED: NON-FORMULARY MEDICATION (Ondansetron Hcl [Zofran] 8 MG) PO PRN (01:43)
[2017-08-27] MEDS ORDERED: BENTYL PO PRN (01:43)
[2017-08-27] MEDS ORDERED: NORCO 5-325 PO PRN (05:09)
[2017-08-27] MEDS ORDERED: ZOFRAN TAB PO PRN (07:19)
[2017-08-27] MEDS: FERROUS SULFATE PO SCH ×3 (08:13→21:06)
[2017-08-27] MEDS: FLAGYL PO SCH ×3 (08:14→21:06)
[2017-08-27] MEDS: FOLIC ACID PO SCH (08:14)
[2017-08-27] MEDS ORDERED: NON-FORMULARY MEDICATION (Metronidazole [Flagyl] 500 MG) PO SCH (09:00)
[2017-08-27] MEDS ORDERED: NON-FORMULARY MEDICATION (Ferrous Sulfate [Ferrous Sulfate] 325 MG) PO SCH (09:00)
[2017-08-27] MEDS: BACTROBAN TP SCH ×2 (15:59→21:06)
[2017-08-27] MEDS ORDERED: VANCOMYCIN 1 GM in SODIUM CHLORIDE 250 ML IV ONE (16:00)
[2017-08-27] MEDS: NORCO 5-325 PO PRN (16:56)
[2017-08-27] MEDS: ROCEPHIN 1 GM in SODIUM CHLORIDE 50 ML IV SCH (21:06)
[2017-08-28] MEDS: NORCO 5-325 PO PRN (04:10)
[2017-08-28] MEDS: FLAGYL PO SCH ×3 (04:36→22:18)
[2017-08-28] MEDS: FERROUS SULFATE PO SCH ×3 (10:19→22:18)
[2017-08-28] MEDS: FOLIC ACID PO SCH (10:19)
[2017-08-28] MEDS: SODIUM CHLORIDE 1,000 ML IV SCH (10:20)
[2017-08-28] MEDS: VANCOMYCIN 500 MG in SODIUM CHLORIDE 100 ML IV SCH ×2 (10:20→22:18)
[2017-08-28] MEDS: BACTROBAN TP SCH ×3 (10:20→22:18)
[2017-08-28] MEDS ORDERED: INFUVITE ADULT IV ONE (20:19)
[2017-08-28] MEDS: INFUVITE ADULT 10 ML in D5%-1/2NS-KCL 20 MEQ/L IV SOL 1,000 ML IV SCH (20:30)
[2017-08-28] MEDS: OXYCODONE PO PRN (22:25)
[2017-08-28] MEDS: ROCEPHIN 1 GM in SODIUM CHLORIDE 50 ML IV SCH (23:41)
[2017-08-29] MEDS: FLAGYL PO SCH ×3 (04:23→20:57)
[2017-08-29] MEDS: BACTROBAN TP SCH ×3 (09:25→20:58)
[2017-08-29] MEDS: FOLIC ACID PO SCH (09:25)
[2017-08-29] MEDS: FERROUS SULFATE PO SCH ×3 (09:25→20:57)
[2017-08-29] MEDS: OXYCODONE PO PRN ×2 (09:25→16:43)
[2017-08-29] MEDS: VANCOMYCIN 500 MG in SODIUM CHLORIDE 100 ML IV SCH ×2 (10:20→21:45)
[2017-08-29] MEDS ORDERED: INFUVITE ADULT IV ONE (12:15)
[2017-08-29] MEDS: INFUVITE ADULT 10 ML in D5%-1/2NS-KCL 20 MEQ/L IV SOL 1,000 ML IV SCH (12:19)
[2017-08-29] MEDS ORDERED: LIDOCAINE VISCOUS 2% 15 ML UD MUCOUSMEMB PRN (16:24)
[2017-08-29] MEDS: ZANTAC PO SCH (18:14)
[2017-08-29] MEDS: NYSTATIN ORAL SUSP PO SCH ×2 (18:14→20:57)
[2017-08-29] MEDS: ROCEPHIN 1 GM in SODIUM CHLORIDE 50 ML IV SCH (20:57)
[2017-08-30] MEDS: NYSTATIN ORAL SUSP PO SCH ×4 (05:58→22:11)
[2017-08-30] MEDS: FLAGYL PO SCH ×3 (05:58→22:10)
[2017-08-30] MEDS: ZANTAC PO SCH ×2 (05:58→17:55)
[2017-08-30] MEDS: BACTROBAN TP SCH ×3 (08:02→22:10)
[2017-08-30] MEDS: OXYCODONE PO PRN ×2 (08:02→14:42)
[2017-08-30] MEDS: FOLIC ACID PO SCH (08:02)
[2017-08-30] MEDS: FERROUS SULFATE PO SCH ×3 (08:02→22:10)
[2017-08-30] MEDS: VANCOMYCIN 500 MG in SODIUM CHLORIDE 100 ML IV SCH ×2 (08:03→22:55)
[2017-08-30] MEDS: INFUVITE ADULT 10 ML in D5%-1/2NS-KCL 20 MEQ/L IV SOL 1,000 ML IV SCH ×3 (09:14→23:50)
--- NOTE | 2017-08-30 09:19 | PN ---
DATE OF VISIT: 08/28/17 SUBJECTIVE: The patient is feeling better. She doesn't have as much pain in the right ear as she had when it began. The swelling in the right ear also has regressed remarkably and the redness in the right neck has more or less fated but not completely. She has not had any vomiting episode since admission. Vital signs early this morning 5:44am showed a temperature 97.6, pulse 91, blood pressure 104/69,respiratory rate 13, oxygen saturation 100% at room air. Her oxygen saturation bounces between 99 to 100. Her CBC today showed a slightly higher WBC 11,720 from 8,120. The hgb and hct stayed about the same 10.2 and 31.3. The Chemistries showed decreasing AST and ALT. The AST was almost three times normal ALT one and a half times normal. Alkaline phosphatase bated to about one and a quarter times normal. The Alkaline phosphatase had remained elevated and the ALT is now back to normal and AST close to normal today 08/28/17. Culture for the right ear for bacteria and fungus no results at this time. This patient was placed on a gluten free diet hopefully it will be helpful since she is no longer taking Humira at this time and the last dose was last Saturday and the next dose would be two weeks from that time. She is also off Methotrexate and did not take it last Saturday and will not be resume until after discussing the case with Dr. Charley Palumbo. I did put the call to Dr. Palumbo today and left a message. I left also my phone number needing to discuss the case with her and guidance with her immunotherapy for her Crohn's disease. KENDELL
--- NOTE | 2017-08-30 09:50 | PN ---
DATE OF VISIT: 08/28/17 SUBJECTIVE: The patient is feeling better, still has pain according to her as well as some back pain. The swelling in the ears as well as redness has decreased. The redness in the right side of the neck as almost resolved. General color is good. She was asking why the medication [place] was discontinued 5-325. I told her that I needed to stop the Tylenol. The previous Tylenol order was stopped immediately but the [place] also will be stopped to see if there is rapid progression of the liver enzymes to return to normal. The liver enzymes that were elevated previously were returning towards normal. The patient also wanted to change her diet to regular. I explained that gluten free diet for her because of the Crohn's disease she says and hopefully this might help. This patient however doesn't seem to be receptive to that and she wanted to return to her general diet and so she will be given a regular diet. LUNG: Clear HEART: Normal sinus rhythm SKIN: Right ear swelling and redness is much less MTDD
--- NOTE | 2017-08-30 09:59 | PN ---
DATE OF VISIT: 08/29/17 SUBJECTIVE: The patient today is alert and feeling better. Still has pain and requires pain medication. She told me that she has more liquid stool in the bag and maybe due to the multivitamins that was placed in the IV. We will discontinue the IV. She is also complaining of some burning in her mouth and will given Nystatin oral suspension. Her CBC today showed moderate Anemia 11.2 gram hgb, 34.9hct. MCV 83.9 and MCH 26.9. Plt count 480. Chemistry is unremarkably except for the slight elevation of the AST but much better than the previous level. Alkaline phosphatase is elevated 124 upper normal 98. I don't know if the Alkaline Phosphatase elevation is related to the GI problem which it probably is. I told her that I have talked to Dr. Charley Paulmbo yesterday afternoon and she agreed with the course of the antibiotic that is being given. I also told her that I informed Dr. Palumbo that the Methotrexate is held at this time and it will be up to her to resume it including the Humira. This patient may have to go to [place] for this doctor to resume it. The blood screen did show positive opioids, positive oxycodone which was done 08/27/17. Positive also for amphetamines and she did tell me that she is taking Adderall, positive for THC. Wound cultures in the ears were still negative for growth as well as the hand culture. There were specimen's from the ear one is for a fungus culture and that is not reflected on this screen. The blood cultures were negative from times two. ASSESSMENT 1. Cellulitis right ear resolving 2. Crohn's disease status post with ileostomy PROGNOSIS: Guarded. MTDD
--- NOTE | 2017-08-30 10:07 | PN ---
DATE OF VISIT: 08/29/17 SUBJECTIVE: I had a message to me that the patient wanted to go home. I did go to the room and asked for the nurse to come with him. I asked her why she wants to go and she says that she will be fired from work. I told her that is the reason that I don't think somebody would be fired just because they are in the hospital for acute problem. The nurse offered to call her work place to let them know that she is in the hospital and needs to be in the hospital. I told her that I am afraid that if she goes home that the oral medications may not be the medication of choice depending upon the bacteria. This patient is receiving Vancomycin on top of Flagyl. The Flagyl is a chronic antibiotic therapy from [place]. Flagyl is being given every 12 hours 1 gram. The swelling and redness of the right hear has responded very well. I repeated to her that she should be cautious about it since she had taken Humira which reduces the immune system to combat infection. She also was taken Methotrexate and does the same. She also complains of scratchy throat and so the patient is given Nystatin solution about 5cc to be swished around the mouth and spit four times a day. The patient decided not to go home. If this patient does home this patient will be placed on Rifampin 300mg twice a day and Zyvox 600mg twice a day orally. Clindamycin could not be prescribed since there was some questionable reaction to the Clindamycin. MTDD
--- NOTE | 2017-08-30 11:28 | CONS ---
DATE OF CONSULTATION: 08/27/17 REASON FOR CONSULTATION/HISTORY: The lady appears to have inflammation and swelling of his right ear. She went to the emergency room where she was given Clindamycin, she couldn't tolerate it and vomited. Since then the swelling has got worse. EXAMINATION: EARS:Both ears are clear. The right eat has marked inflammation of the pinna itself. NOSE: No mucosa MOUTH: Oropharynx within normal limits. NECK: Tenderness in the cervical lymph nodes. IMPRESSION: 1. Cellulitis of the right pinna, ear RECOMMENDATION: 1. Agreed with Rocephin management 2. Also placed Bactroban ointment on the area. SCOOBYD
[2017-08-30] MEDS: ROCEPHIN 1 GM in SODIUM CHLORIDE 50 ML IV SCH (22:10)
[2017-08-30] MEDS ORDERED: INFUVITE ADULT IV ONE (23:40)
[2017-08-31] MEDS: FLAGYL PO SCH ×3 (05:16→20:33)
[2017-08-31] MEDS: OXYCODONE PO PRN ×3 (05:16→18:36)
[2017-08-31] MEDS: ZANTAC PO SCH ×2 (06:23→18:14)
[2017-08-31] MEDS: NYSTATIN ORAL SUSP PO SCH ×4 (06:23→20:32)
[2017-08-31] MEDS: FOLIC ACID PO SCH (09:45)
[2017-08-31] MEDS: FERROUS SULFATE PO SCH ×3 (09:45→20:33)
[2017-08-31] MEDS: BACTROBAN TP SCH ×3 (09:56→20:32)
[2017-08-31] MEDS: VANCOMYCIN 750 MG in SODIUM CHLORIDE 250 ML IV SCH ×2 (11:05→21:57)
[2017-08-31] MEDS: VANCOMYCIN 500 MG in SODIUM CHLORIDE 100 ML IV SCH (11:09)
[2017-08-31] MEDS: ROCEPHIN 1 GM in SODIUM CHLORIDE 50 ML IV SCH (20:32)
[2017-09-01] MEDS ORDERED: INFUVITE ADULT IV ONE ×2 (01:53→17:32)
[2017-09-01] MEDS: INFUVITE ADULT 10 ML in D5%-1/2NS-KCL 20 MEQ/L IV SOL 1,000 ML IV SCH ×4 (02:01→17:39)
[2017-09-01] MEDS: ZANTAC PO SCH ×2 (05:36→16:12)
[2017-09-01] MEDS: NYSTATIN ORAL SUSP PO SCH ×4 (05:36→21:18)
[2017-09-01] MEDS: FLAGYL PO SCH ×3 (05:36→21:18)
[2017-09-01] MEDS: OXYCODONE PO PRN ×3 (05:40→21:18)
[2017-09-01] MEDS: FOLIC ACID PO SCH (08:33)
[2017-09-01] MEDS: FERROUS SULFATE PO SCH ×3 (08:33→21:18)
[2017-09-01] MEDS: VANCOMYCIN 750 MG in SODIUM CHLORIDE 250 ML IV SCH ×2 (08:33→22:32)
[2017-09-01] MEDS: BACTROBAN TP SCH ×3 (08:35→21:15)
[2017-09-01] MEDS: ROCEPHIN 1 GM in SODIUM CHLORIDE 50 ML IV SCH (21:15)
[2017-09-01] MEDS: DOXYCYCLINE HYCLATE PO SCH (21:18)
[2017-09-02] MEDS: FLAGYL PO SCH ×2 (05:47→12:24)
[2017-09-02] MEDS: NYSTATIN ORAL SUSP PO SCH ×3 (05:47→15:59)
[2017-09-02] MEDS: ZANTAC PO SCH ×2 (05:47→16:00)
[2017-09-02] MEDS: OXYCODONE PO PRN ×2 (05:51→12:24)
[2017-09-02] MEDS: VANCOMYCIN 750 MG in SODIUM CHLORIDE 250 ML IV SCH (08:38)
[2017-09-02] MEDS: FOLIC ACID PO SCH (08:38)
[2017-09-02] MEDS: FERROUS SULFATE PO SCH ×2 (08:38→15:58)
[2017-09-02] MEDS: DOXYCYCLINE HYCLATE PO SCH (08:38)
[2017-09-02] MEDS: BACTROBAN TP SCH ×2 (08:39→15:59)
[2017-09-02] MEDS ORDERED: RIFAMPIN PO SCH (11:00)
--- NOTE | 2017-09-02 11:06 | PCM.CONS ---
CONSULTING PROVIDER: Dr. TRI STACK ATTENDING PROVIDER: Dr. DEION [facility] DATE OF SERVICE: 09/02/17 SUBJECTIVE: This 47 year old WHITE/ F was hospitalized 08/27/17. The patient is seen by Summer Salinas APRN. The patient is sitting in bed. She is alert and is eating breakfast. REVIEW OF SYSTEMS: CONSTITUTIONAL: No night sweats. No fatigue, malaise, lethargy. No fever or chills. HEENT: Eyes: No visual changes. No eye pain. No eye discharge. ENT: No runny nose. No epistaxis. No sinus pain. No odynophagia. No congestion. RESPIRATORY: No cough, no congestion. No hemoptysis. No shortness of breath. CARDIOVASCULAR: No angina symptoms. No CHF symptoms. No atypical chest pain for CAD. No palpitations. No orthopnea. GASTROINTESTINAL: No abdominal pain. No nausea or vomiting. No diarrhea or constipation. No hematemesis. No hematochezia. GENITOURINARY: No urgency. No frequency. No dysuria. No hematuria. No obstructive symptoms. No discharge. No pain. No significant abnormal bleeding. MUSCULOSKELETAL: No musculoskeletal pain; no joint swelling. NEUROLOGICAL: Positive for headache. Awake, alert, oriented to time, place and person. No neck pain. No syncope. No seizures. No dizziness. PSYCHIATRIC: Not anxious. No depression. No suicidal thoughts. No homicidal thoughts. SKIN: No rash. No lesions. No wounds. ENDOCRINE: No unexplained weight loss. No weight gain. HEMATOLOGIC/LYMPHATIC: No anemia. No purpura. No petechiae. No prolonged or excessive bleeding. No palpable lymph nodes. PHYSICAL EXAMINATION: GENERAL: The patient is awake, alert and oriented, lying in bed in no distress. VITAL SIGNS: Temperature 97.8 F, Pulse 85, Respiratory Rate 16, BP 95/60, Pulse Ox 100% HEENT: Head normocephalic, atraumatic. Eyes: Extraocular muscles are intact. Pupils are equal, round and reactive to light and accommodation. Ears: No lesions. Nose appeared normal. Throat: No exudate or erythema. NECK: Supple. No JVD, no carotid bruit. No lymphadenopathy or thyromegaly. LUNGS: Diminished breath sounds. Clear to auscultation. Percussion note normal. Chest symmetrical. HEART: S1, S2, no S3. No murmurs. No cyanosis or clubbing. No ascites. Pulses: Dorsalis pedis and posterior tibial pulses +1 to +2 both sides. ABDOMEN: Soft. Non-tender. Bowel sounds active. No CVA tenderness. No mass felt. EXTREMITIES: No edema. Full range of motion of all extremities, equal. NEUROLOGIC: Positive for headache. No focal deficit. Cranial nerves II through XII are grossly intact. No double vision or headache. SKIN: Warm and dry. Intact. Turgor-normal. Mild erythema and peeling to right outer ear. No swelling. LYMPHATIC: No palpable lymph nodes/no lymphedema. MUSCULOSKELETAL: Normal joints with no swelling. Muscle tone is normal. LAB REVIEW: 08/29/17 04:30 08/29/17 04:30 ASSESSMENT: 1. RIGHT EAR CELLULITIS RECOMMENDATIONS/PLAN: 1. CONTINUE ANTIBIOTICS Plan and coordination of the patient's care discussed in the presence of Applied Statistician and Nurse. CONDITION: Stable SCRIBED BY: Byalee TAVERA scribed while in presence of service performed by Dr. TRI STACK/SUMMER SALINAS APRN on 09/02/17 ([id number])
--- NOTE | 2017-09-02 11:12 | HP ---
CHIEF COMPLAINT: Pain, swelling and redness of the right ear with redness spreading towards the right side of the neck. SOURCE OF HISTORY: Patient. Reliability satisfactory. HISTORY OF PRESENT ILLNESS: The patient claimed that she felt a bump behind the right ear about the middle. The patient did experience pain, quite severe on the right ear, plus swelling and redness. She presented [facility] in [place] ([facility]). The patient had a CBC showing mild anemia with a hemoglobin of 11.8 and hematocrit 38.8. MCV 84.6 and MCH 26.7. WBC 9.7 and platelet count 383. No bands. Electrolytes were normal. GFR greater than 60, sugar non fasting 111. ALT 78, AST 80. Rapid A and B negative. The patient was discharged with Clindamycin 300 mg capsule to be taken three times a day for 10 days and Ciprodex 0.3 to 0.1% otic suspension four drops to the right ear two times a day for 7 days. Hydrocodone/APAP 5/325 mg one tablet every 6 hours prn and Zofran 4 mg tablet every 8 hours as needed for nausea or vomiting. Ferrous sulfate 325 mg tablet daily with breakfast. Folic acid tablet by mouth. CT scan of the head was done and was read as moderate cellulitis involving the right ear and adjacent soft tissue. No abscess is seen. No evidence of mastoiditis and the sinuses are clear. There is no evidence of osteomyelitis. The records that I got from [facility] does not include the history and findings of the ER physician. The patient had vomited, so she presented to [place] [facility]. I asked her about the vomiting and she claimed that she doesn't really know what was the reason for the vomiting. She took the Clindamycin initially without any vomiting and the second dose, as well as the third dose. She surmised that it might have been the pain that she had experienced. This patient, however, was prescribed Zofran from [facility] and so I believe this patient already had some nausea, as well as vomiting and yet at this time this patient was not quite sure as to when the vomiting began. The patient, after examination at the emergency room, was admitted. Emergency room physician recommended admission because of the swelling, pain and redness of the right ear and surrounding area. The ER physician did not mention that this patient is taking Methotrexate and Humira. The patient last took the Humira last Saturday, four days prior to admission, and the Methotrexate was scheduled for Saturday, yesterday, but she did not take the Methotrexate. The initial labs done at [facility] [place] showed the CBC with a normal WBC 9.02, moderate anemia, as well as the lower MCV and MCH towards the lower normal. RDW is 16.9. E GFR 73, creatinine 0.84, BUN 18. AST 103, ALT 102. alkaline phosphatase 117. Total protein 7.2, but the albumin is below normal at 3.0. Urinalysis and drug screen urine was not done before admission. PAST PERSONAL HISTORY: The patient was known to have anemia, GERD, anxiety, depression and Crohn's disease. PAST SURGICAL HISTORY: Cholecystectomy, tubal ligation, exploratory laparotomy and abdominal hysterectomy 2014. She also had what appeared to be right hemicolectomy 04/2017 in [place] with an ileostomy on the right side. FAMILY HISTORY: Father had throat cancer, maybe laryngeal carcinoma. Mother had uterine carcinoma. Members of the family on the maternal side had some cardiovascular disease, as well as diabetes and stoke. SOCIAL HISTORY: The patient is single and works at [employer]. She stopped smoking and admits to using marijuana in the past. She has two children. MEDICATIONS: Prior to this admission: Humira 40 mg/0.8 cc every other week Zofran 8 mg tablet three times a day Bentyl Hydrochloride 10 mg capsule every 6 hours prn Ferrous sulfate 325 mg tablet three times a day Vitamin D2 50 IU monthly Flagyl 500 mg tablet p.o. three times a day Folic Acid 1 mg daily Clindamycin 300 mg capsule three times a day from [facility] the day before Ciprodex four drops to the right ear twice a day Hydrocodone/APAP 5/325 mg one every 6 hours prn The last prescriptions are new prescriptions. Methotrexate 50 mg/2 cc vial, 20 mg per cc, one mg IM weekly, questionable as to the dose. We will clarify that with the pharmacist that filled the prescription. ALLERGIES: No known drug allergies. REVIEW OF SYSTEMS: CONSTITUTIONAL: The patient had no fever or chills, but has pain on the right ear with redness. She looks tired. MARKETING CONTENT MANAGER: Denies any significant headaches. She had some sensation of fullness in the head and face. No seizure disorder and no syncope. VISUAL: Denies any blurred vision, double vision or transient loss of vision. AUDITORY: The patient hears conversation well. Denies any tinnitus. There is pain on the right ear with swelling and edema. There is no drainage. There is no skin breaks, including the area on the back of the ear. The external canal does not show any significant redness. There is some swelling. The TM could not be visualized well because of the pain in the course of the otoscopic examination. Culture and sensitivity, both for bacteria and fungus was obtained. RESPIRATORY: Denies any shortness of breath or significant cough. CARDIOVASCULAR: Denies any chest pain or chest oppression. GASTROINTESTINAL: The patient has nausea and vomited. The patient had not had any vomiting since admission to the hospital. Denies any abdominal pain. GENITOURINARY: Denies any pain or frequency of urination. MUSCULOSKELETAL: No significant joint pains. ENDOCRINE: Negative. INTEGUMENT: HEMATOLOGIC: The patient has anemia, but denies any history of prolonged bleeding or easy bleeding. PSYCHIATRIC: Affect appears to within normal. PHYSICAL EXAMINATION: GENERAL: We have a 47 year old female admitted from the emergency room on 08/26/2017 because of pain, swelling and redness of the right ear, cellulitis and surrounding area, more so towards the right side of the neck. VITAL SIGNS: Temperature 97.1, pulse 82, blood pressure 83/57, respiratory rate 20, oxygen saturation 96 at room air. 5'5", 96 pounds. BMI 16.0. HEAD: Unremarkable. Face is symmetrical and equal with no facial weakness. No significant tenderness in the frontal or maxillary sinus areas to palpation under pressure. The left ear is unremarkable. The right ear is edematous and erythematous. No drainage in any part of the right ear. The drum on the right side is difficult to visualize because of the pain in the course of the examination. EYES: Pupils equal/reactive to light. Conjunctivae not pale. Sclerae not icteric. MOUTH: Unremarkable. THROAT: No inflammation, tumors or exudate. NECK: There is some redness of the skin on the right side, although not intense. No adenopathies noted. No bruit. No rigidity. CHEST: Symmetrical and equal with good expansion with no remarkable tenderness. LUNGS: Breath sounds are heard in both sides. No rales or wheezing. HEART: Audible and regular with good tones. No murmurs. ABDOMEN: Flat, soft with a colostomy on the right side in the upper part of the right lower quadrant. Bowel sounds are active. No tenderness or muscular guarding. EXTERNAL GENITALIA: Not examined. PELVIC AND RECTAL: Not done. LOWER EXTREMITIES: Essentially symmetrical and equal with no edema and the posterior tibials are palpable, but difficult to find anterior tibials. UPPER EXTREMITIES: Essentially symmetrical and equal with pressure ulcerations secondary to a rubber band on the lateral second finger at the MP joint and the 5th finger medial. No drainage in these areas. The patient also has a scabbing area on the knuckle. ASSESSMENT: 1. CELLULITIS RIGHT EAR AND SURROUNDING AREA, ETIOLOGY UNDETERMINED 2. CROHN'S DISEASE, STATUS POST RIGHT HEMICOLECTOMY WITH ILEOSTOMY RIGHT SIDE 3. ON IMMUNOTHERAPY CONSISTING OF HUMIRA AND METHOTREXATE, SECONDARY TO CROHN' S DISEASE 4. CHRONIC ANEMIA 5. HISTORY OF DEPRESSION AND ANXIETY 6. HISTORY OF GERD 7. HISTORY OF CROHN'S DISEASE OPERATED 2016 8. HISTORY OF UTERINE ABLATION 2013 9. HISTORY OF TONSILLECTOMY, CHOLECYSTECTOMY, EXPLORATORY LAPAROTOMY AND TUBAL LIGATION 10. HYSTERECTOMY 2014 PROGNOSIS: Guarded because of the immunotherapy. The patient had Humira last Saturday, four days prior to admission. Methotrexate was more than a week ago. She did not take the Methotrexate on 08/26/2017. The GI doctor who prescribed the Humira, as well as Methotrexate will be contacted and the name was Dr. Charley Fang. I will try to get in touch with her tomorrow morning. [facility]
[2017-09-02 15:31] VITALS: BP 123/52; TEMP 97.8
[2017-09-02] MEDS: INFUVITE ADULT 10 ML in D5%-1/2NS-KCL 20 MEQ/L IV SOL 1,000 ML IV SCH (15:59)
--- NOTE | 2017-09-11 13:15 | DS ---
PATIENT IDENTIFICATION: 47 year old female experienced swelling and pain of the right ear. The swelling and redness was quite rapid. It began on Saturday and she was seen on 08/25/2017 at [facility] emergency room and was discharged with Clindamycin. The patient had a CT scan showing cellulitis, but no abscess or any other abnormalities at [facility]. The patient presented to this facility because of increasing pain and swelling and redness now extending to the right side of the neck. This patient was then subsequently admitted. HOSPITAL COURSE: This patient has Crohn's disease and was operated in April of 2017 because of multiple intestinal problems and did undergo a right hemicolectomy with a temporary ileostomy. The patient since that time was placed on Humira every two weeks and Methotrexate every week. The patient received Humira two days prior to the initiation of the redness, swelling and pain on the right ear. The patient's physical examination revealed and alert individual who is experiencing pain on the right ear of moderate severity. The right ear is red with redness extending to the right side of the neck. There are no adenitis. The lungs were clear. Heart with normal sinus rhythm. Abdomen has an ileostomy on the right lower quadrant in the upper area. The BMI is 19.8. The patient had blood cultures while in the hospital and they were negative, as well as cultures in the external ear for bacteria and fungus, which showed no growth. The patient continued to improve on the Vancomycin IV and the Vancomycin was reduced to 500 mg because of the elevated trough. The patient, today, 09/02/17, is alert, cheerful. She is not dyspneic, nor tachypneic and no cyanosis. She denies any significant pain. EARS: The ear has more or less returned to normal size with no redness and no raw surface. NECK: No significant adenopathies and no bruit. LUNGS: Clear to auscultation in both sides. HEART: Audible and regular with good tones. ABDOMEN: Nontender. The patient is then discharged today with the following prescriptions: Doxycycline 100 mg tablet to be taken 2 hours after breakfast and 2 hours after supper. This patient was initiated on this medication yesterday to have some idea whether she can tolerate the medication or not. She also was initiated on Rifampin this morning and she had no adverse reaction. The patient at discharge was also prescribed Rifampin 300 mg to be taken every 12 hours. She should continue the Bactroban to be applied to ears on the right side. She still has Bactroban that was used in the hospital and will be sent with her. I did tell her to take a shower twice a day and that she might return to work tomorrow and I would see her Saturday at the office and she should call the office for an appointment. I also told her that if she has any recurrence of the redness or swelling of the right ear, that she should come to the emergency room immediately. I also informed her that she needs to talk to Dr. Charley Palumbo with regards to resuming the Humira and also the Methotrexate. She told me that she doesn't want to resume the Humira. I told her that she should discuss that with Dr. Palumbo. I did also inform her to get in touch with Dr. Palumbo because she may need to see her in [place] before resuming the medication. FINAL DIAGNOSES: 1. CELLULITIS RIGHT EAR, RESOLVED 2. CROHN'S DISEASE ON IMMUNOTHERAPY, HUMIRA AND METHOTREXATE NOTE: Her labs today showed a normal WBC 9,310, hemoglobin 10.7, hematocrit 33 , RDW 17.3, MCH 27.2, MCV 84, monocytes slightly elevated at 14.8, upper normal 10. Electrolytes normal. CO2 normal. Renal panel normal. E GFR 86. Blood sugar normal. Calcium normal. Liver panel normal. Alkaline phosphatase normal. Total protein 7, albumin 3.0. The patient was seen by Dr. Wylie on consultation. He ordered an echocardiogram for tomorrow and I did talk to him about it and told him that we can bring her back tomorrow for outpatient and he said to just not do it at the present time. He did not specify as whether he will do one or not. The patient is then discharged in good condition with the prescriptions. KENDELL
== END 2017-09-02 18:15 | disposition home or self-care (01) | DRG 155 ==
LOC: ED 22:15 → SCU 08-27 00:22 → MEDSURG B 09-01 19:41
PROVIDERS: ADMIT General Practice; ATTEND General Practice
DX: H60.11 Cellulitis of right external ear (principal); K50.10 Crohn's disease of large intestine without complications; R11.2 Nausea with vomiting, unspecified; F15.90 Other stimulant use, unspecified, uncomplicated; F11.90 Opioid use, unspecified, uncomplicated; F12.90 Cannabis use, unspecified, uncomplicated; R09.89 Other specified symptoms and signs involving the circulatory and respiratory systems; Z93.3 Colostomy status; Z79.899 Other long term (current) drug therapy; Z90.49 Acquired absence of other specified parts of digestive tract
CPT/HCPCS: 36415; 80053; 80069; 80074; 80076; 80202; 80306; 80307; 81001; 82550; 83605; 84145; 84484; 85007; 85025; 85651; 86140; 86592; 87040; 87070; 87101; 93005; 93010; 96365; 96375; 99285

== ENCOUNTER 2017-09-27 15:39 | Outpatient (CLI) | END 2017-09-27 15:40 | disposition home or self-care (01) | LOC: LAB 15:39 | PROVIDERS: ATTEND General Practice | DX: R05 Cough (principal); R68.83 Chills (without fever) | CPT/HCPCS: 36415; 85025; 87651; 87804 ==

== ENCOUNTER 2017-09-29 09:15 | Outpatient (CLI) ==
[2017-09-29 09:27] VITALS: BMI 16.0
== END 2017-09-29 09:16 | disposition critical access hospital (66) ==
LOC: AMBL 09:15
PROVIDERS: ATTEND Internal Medicine
DX: R52 Pain, unspecified (principal); J10.1 Influenza due to other identified influenza virus with other respiratory manifestations

== ENCOUNTER 2017-09-29 09:27 | Emergency (ER) ==
[2017-09-29 09:27] VITALS: BMI 16.0
[2017-09-29 09:32] VITALS: BP 125/86; TEMP 99.4
[2017-09-29] MEDS ORDERED: NORCO 10-325 PO STA (09:38)
--- NOTE | 2017-09-29 09:41 | ED.PDOC ---
General ED Provider: Dr. AMPARO MELGOZA Chief Complaint: Respiratory Complaint Stated Complaint: FLU LIKE SYMPTOMS Time Seen by Physician: 09:30 Mode of Arrival: Ambulance Information Source: Patient, EMT Exam Limitations: No limitations [facility] Nursing and Triage Documentation Reviewed and Agree: Yes (FLU A POSTIVE NOT IMPROVING DENIED ANY NEW CHANGES ) Reviewed sepsis parameters & appropriate labs ordered?: Yes (NO NEW SYMPTOMS STATED SHE HAS PAIN ALL OVER ) System Inflammatory Response Syndrome: Not Applicable Sepsis Protocol: For patient's 13 years and over: Temp is 96.8 and below OR 101 and greater Pulse >90 BPM Resp >20/minute Acutely Altered Mental Status Are patient's symptoms suggestive of a new infection, such as: -Pneumonia -Skin, Soft Tissue -Endocarditis -UTI -Bone, Joint Infection -Implantable Device -Acute Abdominal Infection -Wound Infection -Meningitis -Blood Stream Catheter Infection -Unknown System Inflammatory Response Syndrome: Not Applicable Review of Systems - Review Of Systems Constitutional: Reports: Malaise, Weakness, Loss of appetite Eyes: Reports: No symptoms Ears, Nose, Mouth, Throat: Reports: No symptoms Respiratory: Reports: Cough Cardiac: Reports: No symptoms GI: Reports: No symptoms : Reports: No symptoms Musculoskeletal: Reports: No symptoms Skin: Reports: No symptoms Neurological: Reports: No symptoms Endocrine: Reports: No symptoms Hematologic/Lymphatic: Reports: No symptoms All Other Systems: Reviewed and Negative Past Medical History - Past Medical History Previously Healthy: Yes Endocrine: Reports: Unknown Cardiovascular: Reports: Unknown Respiratory: Reports: Other Hematological: Reports: Unknown Gastrointestinal: Reports: Crohn's Genitourinary: Reports: Unknown Neuro/Psych: Reports: Unknown Musculoskeletal: Reports: Unknown Cancer: Reports: Unknown Last Menstrual Period: n/a - Surgical History General Surgical History: Reports: Other (partial colectomy) - Family History Family History: Reports: Unknown - Social History Smoking Status: Former smoker Hx Substance Use: Yes (marijuana) Alcohol Screening: None Physical Exam - Physical Exam Appearance: Ill-appearing Ill-appearing: Mild Pain Distress: Mild Eyes: YASSINE, EOMI, Conjunctiva clear ENT: Ears normal, Nose normal, Oropharynx normal Respiratory: Airway patent, Breath sounds clear, Breath sounds equal, Respirations nonlabored Cardiovascular: RRR, Pulses normal, No rub, No murmur GI/: Soft, Nontender, No masses, Bowel sounds normal, No Organomegaly Musculoskeletal: Normal strength, ROM intact, No edema, No calf tenderness Skin: Warm, Dry, Normal color Neurological: Sensation intact, Motor intact, Reflexes intact, Cranial nerves intact, Alert, Oriented Psychiatric: Affect appropriate, Mood appropriate Critical Care Note - Critical Care Note Total Time (mins): 0 Course - Course Orders, Labs, Meds: Orders Category Date Time Status Hydrocodone Bit/Acetaminophen [[place] 10-325] MEDS 09/29/17 09:38 Stat 1 tab PO ONCE STA Vital Signs: Temp Pulse Resp BP Pulse Ox 09/29/17 09:27 99.4 F 92 H 16 125/86 98 Departure - Departure Time of Disposition: 09:41 Disposition: HOME SELF-CARE Discharge Problem: Influenza A Instructions: Influenza (ED) Condition: Good Pt referred to PMD for follow-up: Yes IPMP verified?: Yes Additional Instructions: Please call your Family Physician as soon as possible to schedule a follow-up appointment. Allergies/Adverse Reactions: Allergies No Known Allergies Allergy (Verified 09/29/17 09:30)
== END 2017-09-29 10:27 | disposition home or self-care (01) ==
LOC: ED 09:27
DX: J10.1 Influenza due to other identified influenza virus with other respiratory manifestations (principal)
CPT/HCPCS: 99282

== ENCOUNTER 2017-10-03 16:28 | Outpatient (CLI) | END 2017-10-03 16:29 | disposition home or self-care (01) | LOC: RHC-LAB 16:28 | PROVIDERS: ATTEND General Practice | DX: Z79.899 Other long term (current) drug therapy (principal) | CPT/HCPCS: 81001 ==

== ENCOUNTER 2018-10-14 20:03 | Outpatient (CLI) | END 2018-10-14 20:25 | disposition short-term general hospital (02) | LOC: AMBL 20:03 | PROVIDERS: ATTEND Family Medicine | DX: R10.30 Lower abdominal pain, unspecified (principal); K94.19 Other complications of enterostomy; R11.0 Nausea ==